=== PATIENT | male | born 1975 | race Caucasian/White ===

== ENCOUNTER 2018-11-01 01:52 | Emergency (ER) | payer OTHER ==
[~2018-11-01] VITALS: Ht 170.2 cm; Wt 86.4 kg
[2018-11-01] MEDS ORDERED: CYCL10TA PO (02:00)
[2018-11-01] MEDS ORDERED: KETOROLAC 60 MG/2 ML VIAL (J1885) IM ONE (03:45)
[2018-11-01 04:33] VITALS: BP 133/86
--- NOTE | 2018-11-01 08:02 | REP ---
Lumbar spine series: Three views. History: Pain. Findings: Lumbar vertebral body heights are preserved. There is mild disc space narrowing with discogenic spurring at L 02/03 and to a lesser extent L3-4. Pedicles and posterior elements are intact. No fracture or collapse is seen. Psoas margins are symmetric. Sacrum and SI joints are unremarkable. Impression: Mild degenerative disc changes L2-3 and L3-4. Otherwise negative. Electronically Signed by Bill Mcmahan MD 11/01/2018 07:53 A
== END 2018-11-01 04:35 | disposition home or self-care (01) ==
LOC: M ED 01:52
DX: G89.29 Other chronic pain (principal); M54.5 Low back pain; M51.36 Other intervertebral disc degeneration, lumbar region; Z79.899 Other long term (current) drug therapy
CPT/HCPCS: 72100; 96372; 99283; J1885